=== PATIENT | female | born 1990 | race Caucasian/White ===

== ENCOUNTER 2020-11-19 23:21 | Emergency (ER) | payer SELFPAY ==
[~2020-11-19] VITALS: Ht 154.9 cm; Wt 55.0 kg
[~2020-11-19 23:21] MED LIST: ACHD5005 PO; ALBU8.5H4 IH; BIRTH CONTROL PO; CPR500T PO; CYCL10TA9 PO; DICY20TA57 PO; HYDR-690 PO; HYDR1TAB PO; IBUP-792; NAPR550T PO; OSLT75C PO; OXYELITE PRO; PRCD5U PO; PRED20TA PO; SULF1TAB35 PO; TRAM50TA2 PO; [UNRECOGNIZED DRUG - CODE]
[2020-11-19 23:58] LABS: BASOPHILS # (AUTO) 0.1 10^3/uL (0.0-0.1); BASOPHILS % (AUTO) 1 % (0-10); EOSINOPHILS # (AUTO) 0.2 10^3/uL (0.0-0.3); EOSINOPHILS % (AUTO) 2 % (0-10); HEMATOCRIT 41 % (35-52); HEMOGLOBIN 14.1 g/dL (11.5-16.0); LYMPHOCYTES # (AUTO) 3.6 10^3/uL (1.0-4.0); LYMPHOCYTES % (AUTO) 29 % (12-44); MEAN CORPUSCULAR HEMOGLOBIN 32 pg (25-34); MEAN CORPUSCULAR HGB CONC 34 g/dL (32-36); MEAN CORPUSCULAR VOLUME 92 fL (80-99); MONOCYTES # (AUTO) 0.5 10^3/uL (0.0-1.0); MONOCYTES % (AUTO) 4 % (0-12); NEUTROPHILS # (AUTO) 7.9 10^3/uL (1.8-7.8); NEUTROPHILS % (AUTO) 64 % (42-75); PLATELET COUNT 249 10^3/uL (130-400); WHITE BLOOD COUNT 12.4 10^3/uL (4.3-11.0)
[2020-11-19 23:59] LABS: BILIRUBIN,URINE NEGATIVE (NEGATIVE); CLARITY,URINE CLEAR; COLOR,URINE YELLOW; GLUCOSE, URINE (UA) NEGATIVE (NEGATIVE); KETONES,URINE NEGATIVE (NEGATIVE); LEUKOCYTE ESTERASE ,URINE TRACE (NEGATIVE); NITRITE,URINE NEGATIVE (NEGATIVE); PH,URINE 6.5 (5-9); PROTEIN,URINE NEGATIVE (NEGATIVE)
[2020-11-20] MEDS ORDERED: LACTATED RINGERS 1,000 ML IV ONE
[2020-11-20] MEDS ORDERED: KETOROLAC 30 MG/ML VIAL IVP ONE
[2020-11-20 00:04] LABS: ALBUMIN 4.5 GM/DL (3.2-4.5)
[2020-11-20 00:05] LABS: BACTERIA,URINE TRACE /HPF; RBC,URINE RARE /HPF; WBC,URINE RARE /HPF
[2020-11-20 00:05] LABS: CALCIUM 9.1 MG/DL (8.5-10.1)
[2020-11-20 00:07] LABS: TOTAL PROTEIN 7.6 GM/DL (6.4-8.2)
--- NOTE | 2020-11-20 00:07 | ED Abdominal Pain ---
General Chief Complaint: Abdominal/GI Problems Stated Complaint: ABD PAIN/HAS ENDOMETRIOSIS Nursing Triage Note: Pt ambulatory into ER with complaint of Abdominal Pain x1 week, Worsening since 2300. Pt states that she has history of Endometriosis, and multiple cysts. Pt states that tonight around 2300 pain intensified to 10/10. pt admits to drinking 5 beers tonight and also using marijuana on the way to the hospital. Pain currently is 6/10. Source of Information: Patient, Old Records Exam Limitations: No Limitations History of Present Illness Date Seen by Provider: Nov 20, 2020 Time Seen by Provider: 23:44 Initial Comments This 30-year-old young lady presents to the emergency room with complaints of lower abdominal pain over the past 10 days. She reports the pain started in the right lower quadrant and that has subsided. In the past 24 hours she has developed pain in the left lower quadrant. This was initially quite severe and has subsided some prior to arriving in the ER. She did attempt to treat the pain with Tylenol, marijuana, and alcohol tonight. She has history of endometriosis diagnosed by laparoscopic he, ovarian cysts, and ureteral stones. She reports the pain radiates from her left lower quadrant around the iliac spine down to the groin. She has some radiation toward the back as well and some radiation of pain down into her left thigh. She has had some nausea without vomiting. She reports recent constipation and no diarrhea. She is afebrile. She reports cloudy urine with no gross hematuria. She reports recently moving back to the area. Records show she has not been seen at this facility since 2014. She does not have a local provider at this time and she reports previously seeing Dr. Schwarz. She admits to smoking marijuana all the way to the ER and drinking alcohol tonight. Allergies and Home Medications Allergies Coded Allergies: Penicillin G (Verified Allergy, Unknown, 04/05/08) Patient Home Medication List Home Medication List Reviewed: Yes Cyclobenzaprine Hcl (Cyclobenzaprine Hcl) 10 Mg Tablet, 1 EACH PO Q8H PRN for SPASMS Prescribed by: DIETER LUTHER on 07/12/14 221 Hydrocodone Bit/Acetaminophen (Lortab 5 Mg Tablet) 1 Each Tablet, 1-2 EACH PO Q6H PRN Prescribed by: CIRO ANTUNEZ on 11/17/12 0244 Ondansetron (Ondansetron Odt) 4 Mg Tab.rapdis, 4 MG SL Q4H PRN for NAUSEA/VOMITING Prescribed by: TOMMY GOMEZ on 11/20/20 0158 Prednisone (Prednisone) 20 Mg Tablet, 40 MG PO DAILY Prescribed by: DIETER LUTHER on 07/12/142211 Tramadol Hcl (Tramadol Hcl) 50 Mg Tablet, 50 MG PO Q4H PRN for PAIN Prescribed by: DIETER LUTHER on 07/12/142211 [ Control] , 1 TAB PO DAILY, (Reported) Entered as Reported by: NADIR ZIMMER on 05/18/121952 Review of Systems Review of Systems Constitutional: no symptoms reported EENTM: No Symptoms Reported Respiratory: No Symptoms Reported Cardiovascular: No Symptoms Reported Gastrointestinal: See HPI Genitourinary: See HPI Musculoskeletal: no symptoms reported Skin: no symptoms reported Psychiatric/Neurological: See HPI Endocrine: No Symptoms Reported Hematologic/Lymphatic: No Symptoms Reported Past Xrsgmwu-[id number]-Sramii Hx Patient Social History Tobacco Use?: Yes Tobacco type used: Cigarettes Smoking Status: Current Everyday Smoker Use of E-Cig and/or Vaping dev: No Substance use?: Yes Substance type: Marijuana Substance frequency: Daily Alcohol Use?: Yes Alcohol type: Beer Alcohol Frequency: Several times a month Pt feels they are or have been: No Immunizations Up To Date Tetanus Booster (TDap): Unknown Influenza Vaccine Up-to-Date: No; Not Current Seasonal Allergies Seasonal Allergies: No Past Medical History Surgeries: Yes Abdominal (Abdominal laparoscopic), Appendectomy, Tonsillectomy Respiratory: No Cardiac: No Neurological: No : No Last Menstrual Period: Oct 29, 2020 Reproductive Disorders: Yes Female Reproductive Disorders: Endometriosis, Ovarian Cyst, Polycystic Ovarian Dis Gastrointestinal: No Musculoskeletal: No Endocrine: No HEENT: No Cancer: No Psychosocial: No Anxiety Integumentary: No Family Medical History No Pertinent Family Hx Physical Exam Vital Signs Vital Signs - First Documented 11/19/20 23:44 Temp 36.2 Pulse 115 Resp 20 B/P (MAP) 106/83 (91) Pulse Ox 97 O2 Delivery Room Air Capillary Refill : Less Than 3 Seconds Height/Weight/BMI Height: 5'1" Weight: 127lbs. oz. [id number]; 22.00 BMI Method:Stated General Appearance: WD/WN, mild distress HEENT: PERRL/EOMI, normal ENT inspection Neck: normal inspection Respiratory: lungs clear, normal breath sounds, no respiratory distress Cardiovascular: regular rate, rhythm, no edema, no murmur Gastrointestinal: normal bowel sounds, soft; No distended; tenderness (Left flank and left lower quadrant mildly tender to palpation. No significant pain with percussion.) Extremities: normal inspection, no pedal edema Neurologic/Psychiatric: trauma registrar II-XII nml as tested, no motor/sensory deficits, alert, oriented x 3, other (Anxious, seems mildly agitated) Skin: normal color, warm/dry Progress/Results/Core Measures Results/Orders Lab Results Laboratory Tests Test 11/19/20 23:35 11/19/20 23:40 Range/Units Urine Color YELLOW Urine Clarity CLEAR Urine pH 6.5 5-9 Urine Specific [place] <=1.005 1.016-1.022 Urine Protein NEGATIVE NEGATIVE Urine Glucose (UA) NEGATIVE NEGATIVE Urine Ketones NEGATIVE NEGATIVE Urine Nitrite NEGATIVE NEGATIVE Urine Bilirubin NEGATIVE NEGATIVE Urine Urobilinogen 0.2 < = 1.0 MG/DL Urine Leukocyte Esterase TRACE H NEGATIVE Urine RBC (Auto) TRACE-I H NEGATIVE Urine RBC RARE /HPF Urine WBC RARE /HPF Urine Squamous Epithelial Cells 5-10 /HPF Urine Crystals NONE /LPF Urine Bacteria TRACE /HPF Urine Casts NONE /LPF Urine Mucus NEGATIVE /LPF Urine Culture Indicated NO Urine Opiates Screen NEGATIVE NEGATIVE Urine Oxycodone Screen NEGATIVE NEGATIVE Urine Methadone Screen NEGATIVE NEGATIVE Urine Propoxyphene Screen NEGATIVE NEGATIVE Urine Barbiturates Screen NEGATIVE NEGATIVE Ur Tricyclic Antidepressants Screen NEGATIVE NEGATIVE Urine Phencyclidine Screen NEGATIVE NEGATIVE Urine Amphetamines Screen NEGATIVE NEGATIVE Urine Methamphetamines Screen NEGATIVE NEGATIVE Urine Benzodiazepines Screen NEGATIVE NEGATIVE Urine Cocaine Screen NEGATIVE NEGATIVE Urine Cannabinoids Screen NEGATIVE NEGATIVE White Blood Count 12.4 H 4.3-11.0 10^3/uL Red Blood Count 4.44 3.80-5.11 10^6/uL Hemoglobin 14.1 11.5-16.0 g/dL Hematocrit 41 35-52 % Mean Corpuscular Volume 92 80-99 fL Mean Corpuscular Hemoglobin 32 25-34 pg Mean Corpuscular Hemoglobin Concent 34 32-36 g/dL Red Cell Distribution Width 12.6 10.0-14.5 % Platelet Count 249 130-400 10^3/uL Mean Platelet Volume 11.0 9.0-12.2 fL Immature Granulocyte % (Auto) 0 % Neutrophils (%) (Auto) 64 42-75 % Lymphocytes (%) (Auto) 29 12-44 % Monocytes (%) (Auto) 4 0-12 % Eosinophils (%) (Auto) 2 0-10 % Basophils (%) (Auto) 1 0-10 % Neutrophils # (Auto) 7.9 H 1.8-7.8 10^3/uL Lymphocytes # (Auto) 3.6 1.0-4.0 10^3/uL Monocytes # (Auto) 0.5 0.0-1.0 10^3/uL Eosinophils # (Auto) 0.2 0.0-0.3 10^3/uL Basophils # (Auto) 0.1 0.0-0.1 10^3/uL Immature Granulocyte # (Auto) 0.0 0.0-0.1 10^3/uL Sodium Level 142 135-145 MMOL/L Potassium Level 4.0 3.6-5.0 MMOL/L Chloride Level 109 H 98-107 MMOL/L Carbon Dioxide Level 19 L 21-32 MMOL/L Anion Gap 14 5-14 MMOL/L Blood Urea Nitrogen 9 7-18 MG/DL Creatinine 0.76 0.60-1.30 MG/DL Estimat Glomerular Filtration Rate 89 BUN/Creatinine Ratio 12 Glucose Level 97 70-105 MG/DL Calcium Level 9.1 8.5-10.1 MG/DL Corrected Calcium 8.7 8.5-10.1 MG/DL Total Bilirubin 0.1 0.1-1.0 MG/DL Aspartate Amino Transf (AST/SGOT) 17 5-34 U/L Alanine Aminotransferase (ALT/SGPT) 18 0-55 U/L Alkaline Phosphatase 71 40-136 U/L C-Reactive Protein High Sensitivity 0.12 0.00-0.50 MG/DL Total Protein 7.6 6.4-8.2 GM/DL Albumin 4.5 3.2-4.5 GM/DL Lipase 27 8-78 U/L Serum Test, Qualitative NEGATIVE NEGATIVE Serum Alcohol 230 H <10 MG/DL My Orders Orders - TOMMY LAINEZ MD Alcohol (11/19/20 23:51) Cbc With Automated Diff (11/19/20 23:51) Comprehensive Metabolic Panel (11/19/20 23:51) Hs C Reactive Protein (11/19/20 23:51) Drug Screen Stat (Urine) (11/19/20 23:51) Hcg,Qualitative Serum (11/19/20 23:51) Ua Culture If Indicated (11/19/20 23:51) Ed Iv/Invasive Line Start (11/19/20 23:51) Lipase (11/19/20 23:51) Lactated Ringers (Lr 1000 Ml Iv Solution (11/20/20 00:00) Ketorolac Injection (Toradol Injection) (11/20/20 00:00) Ondansetron Injection (Zofran Injectio (11/20/20 00:00) Ondansetron Injection (Zofran Injectio (11/20/20 02:00) Medications Given in ED Vital Signs/I&O 11/19/20 11/20/20 23:44 02:03 Temp 36.2 Pulse 115 83 Resp 20 18 B/P (MAP) 106/83 (91) 93/60 Pulse Ox 97 98 O2 Delivery Room Air Room Air Blood Pressure Mean: 91 Progress Progress Note #1: Time: 00:06 Progress Note Patient was seen and examined. Fluids, Toradol, and Zofran were ordered for symptom control. Labs and urinalysis are pending. Progress Note #2: Time: 01:54 Progress Note Patient states she is feeling significantly improved. She has some mild residual nausea. Another dose of Zofran is being administered. She was offered CT scan for further evaluation but declines. Alternatively, she would like to continue evaluation with ultrasound in the morning. She has been given an outpatient order form. She reports her pain seems to be the same type of pain she has experienced with prior ovarian cyst with a similar course of sudden onset and a decrescendo of intensity. She declined any further pain medication. Departure Impression Primary Impression: Left lower quadrant abdominal pain Additional Impression: Alcohol ingestion Disposition: HOME, SELF-CARE Condition: Improved Departure-Patient Inst. Decision time for Depature: 01:53 Referrals: [facility] (PCP/Family) Primary Care Physician Patient Instructions: Ovarian Cysts, Severe Abdominal Pain, Adult (DC) Add. Discharge Instructions: Drink plenty of clear liquids to stay well-hydrated. You may take ibuprofen up to 600 mg every 6 hours as needed and/or Tylenol (acetaminophen) up to 1000 mg every 6 hours as needed for pain. Use Zofran as prescribed for nausea and vomiting. If you are still having pain later this morning you may return to the hospital after 7:30 to obtain an ultrasound. Bring your order form with you. Stay at the hospital until you receive instructions from the ER provider after the ultrasound is performed. Call with questions or concerns. Return to the ER if you have worsening symptoms. Follow-up with your primary care provider soon as possible. All discharge instructions reviewed with patient and/or family. Voiced understanding. Scripts Ondansetron (Ondansetron Odt) 4 Mg Tab.rapdis 4 MG SL Q4H PRN for NAUSEA/VOMITING, #10 TAB Prov: TOMMY LAINEZ MD 11/20/20 TOMMY LAINEZ MD Nov 20, 2020 00:07
[2020-11-20 00:08] LABS: BILIRUBIN,TOTAL 0.1 MG/DL (0.1-1.0)
[2020-11-20 00:10] LABS: CREATININE SERUM 0.76 MG/DL (0.60-1.30)
[2020-11-20 00:10] LABS: AMPHETAMINE SCREEN, URINE NEGATIVE (NEGATIVE); BARBITURATE SCREEN URINE NEGATIVE (NEGATIVE); BENZODIAZEPINES SCREEN URINE NEGATIVE (NEGATIVE); CANNABINOID SCREEN, URINE NEGATIVE (NEGATIVE); COCAINE SCREEN URINE NEGATIVE (NEGATIVE); METHADONE STAT NEGATIVE (NEGATIVE); METHAMPHETAMINE SCREEN URINE S NEGATIVE (NEGATIVE); OPIATE SCREEN URINE NEGATIVE (NEGATIVE); OXYCODONE STAT NEGATIVE (NEGATIVE); PROPOXYPHENE STAT NEGATIVE (NEGATIVE); TRICYCLIC ANTIDEPRESSANTS SCRE NEGATIVE (NEGATIVE)
[2020-11-20] MEDS ORDERED: ONDA4TAB11 SL (01:58)
[2020-11-20] MEDS ORDERED: ONDANSETRON 4 MG/2 ML (SDV) Z0FRAN IVP ONE ×2 (02:00)
[2020-11-20 02:03] VITALS: BP 93/60
== END 2020-11-20 02:01 | disposition home or self-care (01) ==
LOC: EDUNIT# 23:21 → ER 23:27
DX: R10.32 Left lower quadrant pain (principal); F10.929 Alcohol use, unspecified with intoxication, unspecified; F17.210 Nicotine dependence, cigarettes, uncomplicated
CPT/HCPCS: 80053; 80306; 81000; 83690; 84703; 85025; 86141; 99284; G0480; 36415; 80320

== ENCOUNTER → 2020-11-20 | Outpatient (CLI) | payer SELFPAY ==
[~2020-11-20] MED LIST changes: +ONDA4TAB11 SL
--- NOTE | 2020-11-20 12:00 | Diagnostic Imaging Report ---
PROCEDURE: Pelvic comp/transvaginal sonogram. TECHNIQUE: Complete transabdominal and transvaginal pelvic ultrasound was performed. In addition, limited pelvic Doppler was performed. INDICATION: Pelvic pain. FINDINGS: Uterus is retroflexed measuring 7.8 x 4.4 x 4.0 cm. Endometrium is 10 mm in thickness. No uterine mass is detected. Right ovary measures 3.1 x 2.1 x 3.8 cm, and left ovary measures 3.4 x 2.0 x 3.7 cm. There is blood flow to both ovaries. Ovaries do show peripheral distribution of small follicles suggestive of PCOS. No adnexal mass or free fluid is detected. IMPRESSION: Features suggestive of polycystic ovarian syndrome. No acute feature is detected. Dictated by: Dictated on workstation # [id number]
== END ==
LOC: RAD 09:53
PROVIDERS: ATTEND Family Medicine
DX: R10.2 Pelvic and perineal pain (principal); R10.32 Left lower quadrant pain
CPT/HCPCS: 76830; 76856